=== PATIENT | male | born 2005 | race Caucasian/White ===

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

== ENCOUNTER → 2024-09-26 | Outpatient (CLI) | payer SELFPAY ==
[~2024-09-26] MED LIST: Prednisone50 MG PO
== END ==
LOC: LAB 15:10 → LAB SHORT 15:10
DX: J02.9 Acute pharyngitis, unspecified (principal)
CPT/HCPCS: 87081